=== PATIENT | female | born 2000 | race Caucasian/White ===

== ENCOUNTER 2023-01-08 19:35 | Emergency (ER) | payer MEDICAID ==
[~2023-01-08] VITALS: Ht 167.6 cm; Wt 86.4 kg
[2023-01-08 19:46] VITALS: BP 155/85
== END 2023-01-08 21:03 | disposition home or self-care (01) ==
LOC: ER 19:35
DX: Z23 Encounter for immunization (principal); Z56.0 Unemployment, unspecified
CPT/HCPCS: 99281